=== PATIENT | female | born 1970 | race Caucasian/White ===

== ENCOUNTER → 2019-10-07 | Outpatient (CLI) | payer MEDICARE, OTHER ==
[2019-10-10 14:16] LABS: HPV 16 Negative (Negative); HPV 18 Negative (Negative); HPV OTHER HR TYPES Negative (Negative)
== END | disposition home or self-care (01) ==
LOC: LAB SHORT 13:41 → LAB 13:41
PROVIDERS: Obstetrics & Gynecology
DX: Z01.419 Encounter for gynecological examination (general) (routine) without abnormal findings (principal)
CPT/HCPCS: 87624; G0123

== ENCOUNTER 2020-07-13 18:11 | Emergency (ER) | payer MEDICARE, OTHER ==
[~2020-07-13] VITALS: Ht 182.9 cm; Wt 69.8 kg
== END 2020-07-13 21:18 | disposition home or self-care (01) ==
LOC: ER 18:11
DX: K04.7 Periapical abscess without sinus (principal); F17.200 Nicotine dependence, unspecified, uncomplicated; Z79.899 Other long term (current) drug therapy; Z88.2 Allergy status to sulfonamides
CPT/HCPCS: 99282; A9270

== ENCOUNTER 2020-09-30 00:31 | Day surgery (SDC) | payer MEDICARE, OTHER ==
[~2020-09-30 00:31] MED LIST: BUSPIRONE HCL7.5 M2 PO; CYCLOBENZAPRINE; CYMBALTA30 M2 PO; NEURONTIN300 MG PO; PENVK500 PO; PIROXICAM PO; PRAZOSIN HCL1 M2 PO; QUETIAPINE FUM PO
[2020-09-30] MEDS ORDERED: FLUC150A PO (10:03)
[2020-09-30] MEDS ORDERED: ROXICODONE5 MG PO (10:03)
[2020-09-30] MEDS ORDERED: CYCL10 PO (10:03)
[2020-09-30] MEDS ORDERED: LORA10ER PO (10:04)
[2020-09-30] MEDS ORDERED: NAPR220 PO (10:04)
[2020-09-30] MEDS ORDERED: LANS15EC PO (10:04)
[2020-09-30] MEDS ORDERED: FOLI1 PO (10:05)
[2020-09-30] MEDS ORDERED: Acerola C500 MG PO (10:05)
[2020-09-30] MEDS ORDERED: CALCIUM 600 +1 EA11 PO (10:05)
== END 2020-09-30 10:20 | disposition home or self-care (01) ==
LOC: ATC 00:31
DX: K04.7 Periapical abscess without sinus (principal); A42.9 Actinomycosis, unspecified; F17.210 Nicotine dependence, cigarettes, uncomplicated; Z88.2 Allergy status to sulfonamides
CPT/HCPCS: 96365; J0696

== ENCOUNTER 2020-10-01 04:41 | Day surgery (SDC) | payer MEDICARE, OTHER ==
[~2020-10-01 04:41] MED LIST changes: +Acerola C500 MG PO; +CALCIUM 600 +1 EA11 PO; +CYCL10 PO; +FLUC150A PO; +FOLI1 PO; +LANS15EC PO; +LORA10ER PO; +NAPR220 PO; +ROXICODONE5 MG PO
--- NOTE | 2020-10-01 14:26 | NUR ---
IV LEFT IN PLACE FOR INFUSION TOMORROW; WRAPPED WITH GAUZE/COBAN AND WEB SLEEVE. PT EDUCATED ON COVERING WHILE/IF SHOWERING
== END 2020-10-01 14:03 | disposition home or self-care (01) ==
LOC: ATC 04:41
DX: A42.9 Actinomycosis, unspecified (principal); F17.200 Nicotine dependence, unspecified, uncomplicated
CPT/HCPCS: 96365; J0696

== ENCOUNTER 2020-10-02 09:27 | Day surgery (SDC) | payer MEDICARE, OTHER | END 2020-10-02 10:00 | disposition home or self-care (01) | LOC: ATC 09:27 | DX: A42.89 Other forms of actinomycosis (principal); F17.200 Nicotine dependence, unspecified, uncomplicated; Z88.2 Allergy status to sulfonamides | CPT/HCPCS: 96365; J0696; J2001 ==

== ENCOUNTER 2020-10-03 09:25 | Day surgery (SDC) | payer MEDICARE, OTHER | END 2020-10-03 09:54 | disposition home or self-care (01) | LOC: ATC 09:25 | DX: A42.89 Other forms of actinomycosis (principal); F17.200 Nicotine dependence, unspecified, uncomplicated; Z88.2 Allergy status to sulfonamides | CPT/HCPCS: 96365; J0696 ==

== ENCOUNTER 2020-10-04 02:30 | Day surgery (SDC) | payer MEDICARE, OTHER ==
--- NOTE | 2020-10-04 10:06 | NUR ---
LABS DRAWN FROM IV SITE.
[2020-10-04 10:23] LABS: BASOPHILS ABSOLUTE AUTO 0.13 K/mm3 (0.00-0.23); BASOPHILS PERCENT AUTO 2 % (0-2); EOSINOPHILS PERCENT AUTO 2 % (0-6); Hematocrit 39.5 % (33.0-51.0); Hemoglobin 13.1 g/dL (11.5-16.0); IMMATURE GRAN ABSOLUTE AUTO 0.04 K/mm3 (0.00-0.10); IMMATURE GRAN PERCENT AUTO 1 % (0-1); LYMPHOCYTES ABSOLUTE AUTO 1.31 K/mm3 (0.84-5.20); LYMPHOCYTES PERCENT AUTO 15 % (21-46); MONOCYTES ABSOLUTE AUTO 0.48 K/mm3 (0.16-1.47); MONOCYTES PERCENT AUTO 6 % (4-13); Mean Corpuscular HGB 30.8 pg (26.0-34.0); Mean Corpuscular HGB Conc 33.2 g/dL (31.5-36.5); Mean Corpuscular Volume 93 fL (80-100); Mean Platelet Volume 10.4 fL (9.1-12.4); NEUTROPHILS ABSOLUTE AUTO 6.46 K/mm3 (1.96-9.15); NEUTROPHILS PERCENT AUTO 75 % (41-73); Platelet Count 285 K/mm3 (150-400); RDW Coefficient Variation 13.3 % (11.7-14.2); RDW Standard Deviation 45.8 fL (35.1-46.3); Red Blood Cell Count 4.25 M/mm3 (3.80-5.20); White Blood Cell Count 8.62 K/mm3 (4.00-11.30)
[2020-10-04 10:41] LABS: Alanine Aminotransfer (ALT/SGP 17 U/L (12-78); Albumin, Blood 3.5 g/dL (3.4-5.0); Alk Phos 57 U/L (50-136); Anion Gap 9 mmol/L (6-16); Aspartate Aminotrans (AST/SGOT 16 U/L (12-37); Bilirubin, Total 0.3 mg/dL (0.1-1.0); Blood Urea Nitrogen 9 mg/dL (8-24); Bun/Creatinine Ratio 14.3 (12.0-20.0); C-REACTIVE PROTEIN, EXT RANGE 0.615 mg/dL (0.000-0.300); CO2, Blood 26 mmol/L (21-32); Calcium, Blood 8.7 mg/dL (8.5-10.1); Chloride, Blood 106 mmol/L (98-108); Creatinine, Blood 0.63 mg/dL (0.40-1.00); Globulin, Blood 3.4 g/dL (2.2-4.0); Glomerular Filtration Rate >60 (60-); Glucose, Blood 89 mg/dL (70-99); Sodium, Blood 141 mmol/L (136-145); Total Protein, Blood 6.9 g/dL (6.4-8.2)
--- NOTE | 2020-10-04 11:04 | NUR ---
Lab results from today faxed to Dr. Sandoval's office.
== END 2020-10-04 09:55 | disposition home or self-care (01) ==
LOC: ATC 02:30
PROVIDERS: Internal Medicine
DX: A42.9 Actinomycosis, unspecified (principal); F17.200 Nicotine dependence, unspecified, uncomplicated
CPT/HCPCS: 80053; 85025; 86140; 96365; J0696

== ENCOUNTER 2020-10-05 04:29 | Day surgery (SDC) | payer MEDICARE, OTHER | END 2020-10-05 10:00 | disposition home or self-care (01) | LOC: ATC 04:29 | DX: A42.9 Actinomycosis, unspecified (principal); F17.200 Nicotine dependence, unspecified, uncomplicated; Z88.2 Allergy status to sulfonamides | CPT/HCPCS: 96365; J0696 ==

== ENCOUNTER 2020-10-06 00:03 | Day surgery (SDC) | payer MEDICARE, OTHER | END 2020-10-06 09:56 | disposition home or self-care (01) | LOC: ATC 00:03 | DX: A42.9 Actinomycosis, unspecified (principal); F17.200 Nicotine dependence, unspecified, uncomplicated; Z88.2 Allergy status to sulfonamides; Z79.899 Other long term (current) drug therapy | CPT/HCPCS: 96365; J0696 ==

== ENCOUNTER 2020-10-07 01:07 | Day surgery (SDC) | payer MEDICARE, OTHER ==
--- NOTE | 2020-10-07 09:36 | NUR ---
IV IS LOCATED ON PT'S LEFT FOREARM
== END 2020-10-07 09:58 | disposition home or self-care (01) ==
LOC: ATC 01:07
DX: A42.9 Actinomycosis, unspecified (principal); F17.210 Nicotine dependence, cigarettes, uncomplicated; Z88.2 Allergy status to sulfonamides; Z79.899 Other long term (current) drug therapy
CPT/HCPCS: 96365; J0696

== ENCOUNTER 2020-10-08 00:22 | Day surgery (SDC) | payer MEDICARE, OTHER | END 2020-10-08 09:47 | disposition home or self-care (01) | LOC: ATC 00:22 | DX: A42.9 Actinomycosis, unspecified (principal); F17.210 Nicotine dependence, cigarettes, uncomplicated; Z88.2 Allergy status to sulfonamides; Z79.899 Other long term (current) drug therapy | CPT/HCPCS: 96365; J0696 ==

== ENCOUNTER 2020-10-11 00:10 | Day surgery (SDC) | payer MEDICARE, OTHER | END 2020-10-11 09:49 | disposition home or self-care (01) | LOC: ATC 00:10 | DX: A42.9 Actinomycosis, unspecified (principal); F17.210 Nicotine dependence, cigarettes, uncomplicated; Z88.2 Allergy status to sulfonamides | CPT/HCPCS: J0696 ==

== ENCOUNTER 2020-10-12 00:36 | Day surgery (SDC) | payer MEDICARE, OTHER | END 2020-10-12 09:47 | disposition home or self-care (01) | LOC: ATC 00:36 | DX: A42.9 Actinomycosis, unspecified (principal); F17.210 Nicotine dependence, cigarettes, uncomplicated; Z88.2 Allergy status to sulfonamides | CPT/HCPCS: J0696 ==

== ENCOUNTER 2020-10-13 04:01 | Day surgery (SDC) | payer MEDICARE, OTHER | END 2020-10-13 09:51 | disposition home or self-care (01) | LOC: ATC 04:01 | DX: A42.9 Actinomycosis, unspecified (principal); F17.210 Nicotine dependence, cigarettes, uncomplicated; Z88.2 Allergy status to sulfonamides | CPT/HCPCS: 96365; J0696 ==

== ENCOUNTER 2021-03-01 07:37 | Emergency (ER) | payer MEDICARE, OTHER ==
[~2021-03-01] VITALS: Ht 182.9 cm; Wt 74.8 kg
[2021-03-01] MEDS ORDERED: AMOX875 PO (09:07)
[2021-03-01] MEDS ORDERED: [UNRECOGNIZED DRUG - CODE] PO (11:15)
== END 2021-03-01 11:29 | disposition home or self-care (01) ==
LOC: ER 07:37
DX: B37.0 Candidal stomatitis (principal); J02.9 Acute pharyngitis, unspecified; Z88.2 Allergy status to sulfonamides; Z79.899 Other long term (current) drug therapy; F17.210 Nicotine dependence, cigarettes, uncomplicated
CPT/HCPCS: 87081; 87430; 99283

== ENCOUNTER → 2021-08-25 | Outpatient (CLI) | payer MEDICARE, OTHER ==
[~2021-08-25] MED LIST changes: +AMOX875 PO; +[UNRECOGNIZED DRUG - CODE] PO
[2021-08-26 16:07] LABS: HPV 16 Negative (Negative); HPV 18 Negative (Negative); HPV OTHER HR TYPES Negative (Negative)
== END | disposition home or self-care (01) ==
LOC: LAB SHORT 12:40 → LAB 12:40
PROVIDERS: Advanced Practice Midwife
DX: Z01.419 Encounter for gynecological examination (general) (routine) without abnormal findings (principal)
CPT/HCPCS: 87624; G0123